=== PATIENT | female | born 1965 | race Caucasian/White ===

== ENCOUNTER 2021-08-28 16:38 | Inpatient (IN) | payer OTHER, SELFPAY ==
[2021-08-28 19:53] VITALS: BMI 49.8
[2021-08-28] MEDS ORDERED: Acetaminophen 325 MG TAB PO PRN (21:09)
[2021-08-28] MEDS ORDERED: Acetaminophen 650 MG Suppository PR PRN (21:09)
[2021-08-28] MEDS ORDERED: Dextrose 5% in Water 1,000 ML IV PRN ×2 (21:19→21:21)
[2021-08-28] MEDS ORDERED: Dextrose 50% Abboject 50 ML SYRINGE SLOW IVP PRN ×2 (21:19→21:21)
[2021-08-28] MEDS ORDERED: HumaLOG 300 UNITS/3 ML VIAL SC PRN ×2 (21:19→21:21)
[2021-08-28] MEDS ORDERED: Potassium Chloride 20 MEQ TAB PO SCH (21:30)
[2021-08-28] MEDS ORDERED: Albuterol Sulfate 2.5 mg/3 ml Neb NEB PRN (22:52)
[2021-08-28] MEDS ORDERED: Albuterol 200 PUFF (6.7GM INHALER) INH PRN (22:55)
[2021-08-28 23:00] LABS: Troponin I Less than 0.010 ng/mL (< 0.028)
[2021-08-28] MEDS ORDERED: Magnesium 2 GM/50 ML 2 GM in Premix Bag 1 BAG IVPB SCH (23:00)
[2021-08-28] MEDS ORDERED: Magnesium Sulfate 2 GM in Sodium Chloride 0.9% 100 ML IVPB SCH (23:00)
[2021-08-29 00:02] LABS: Cardiac Risk 5.4 (Less than 4.5)
[2021-08-29 00:18] LABS: Hemoglobin A1c 6.1 % (4.0-6.0)
[2021-08-29 02:27] LABS: Troponin I Less than 0.010 ng/mL (< 0.028)
[2021-08-29 06:20] LABS: Band 6 % (5-11); Hemoglobin 14.4 g/dL (12.0-16.0); Lymphocytes 44 % (21-51); MDiff Complete? YES; Mean Corpuscular HGB CONC 34.2 g/dL (32.0-36.0); Mean Corpuscular Hemoglobin 29.7 pg (27.0-31.0); Mean Platelet Volume 6.8 fL (7.4-10.4); Monocytes 18 % (0-10); Neutrophil 32 % (42-75); Platelet Count 346 thou/uL (130-400); Platelet Morphology Comment Appears Adequate; RBC Distribution Width 13.5 % (11.5-14.5); Red Blood Cell (RBC) Count 4.85 mill/uL (4.20-5.40); White Blood Cell (WBC) Count 4.4 thou/uL (4.8-10.8)
[2021-08-29 06:27] LABS: ALT (SGPT) 16 U/L (8-55); AST (SGOT) 15 U/L (5-34); Albumin 3.9 g/dL (3.5-5.0); Alkaline Phosphatase 73 U/L (40-110); Anion Gap 12 mmol/L (10-20); BUN (Urea Nitrogen) 9 mg/dL (9.8-20.1); Bilirubin, Total 0.3 mg/dL (0.2-1.2); Calc. Creatinine Clearance 177 mL/min (70-130); Calcium 8.5 mg/dL (7.8-10.44); Carbon Dioxide 27 mmol/L (22-29); Chloride 103 mmol/L (98-107); Globulin 2.6 g/dL (2.4-3.5); Glucose 126 mg/dL (70-105); Potassium 4.1 mmol/L (3.5-5.1); Protein, Total 6.5 g/dL (6.0-8.3); Sodium 138 mmol/L (136-145)
[2021-08-29] MEDS ORDERED: Dexamethasone 4 MG TAB PO SCH (08:00)
[2021-08-29] MEDS: Loratadine 10 MG TAB PO SCH (08:59)
[2021-08-29] MEDS: metFORMIN 500 MG TAB PO SCH ×2 (08:59→18:35)
[2021-08-29] MEDS ORDERED: Metoprolol Tartrate 50 MG TAB PO SCH (09:00)
[2021-08-29] MEDS: Losartan 25 MG TAB PO SCH (09:00)
[2021-08-29] MEDS ORDERED: FLU VACC QS2021-22(6MOS UP)/PF 60 MCG/0.5 ML SYRINGE IM ONE (09:00)
[2021-08-29] MEDS: Hydrochlorothiazide 25 MG TAB PO SCH (09:02)
[2021-08-29] MEDS: Enoxaparin Sodium 40 MG/0.4 ML SYRINGE SC SCH (09:02)
[2021-08-29] MEDS ORDERED: Atorvastatin Calcium 40 MG TAB PO SCH (21:00)
[2021-08-30] MEDS: Losartan 25 MG TAB PO SCH (08:07)
[2021-08-30] MEDS: Hydrochlorothiazide 25 MG TAB PO SCH (08:08)
[2021-08-30] MEDS: Loratadine 10 MG TAB PO SCH (08:08)
[2021-08-30] MEDS: metFORMIN 500 MG TAB PO SCH (08:08)
[2021-08-30] MEDS: Enoxaparin Sodium 40 MG/0.4 ML SYRINGE SC SCH (08:08)
[2021-08-30] MEDS ORDERED: Polyvinyl Alcohol 1.4%/Povidone 0.6% Opth Drops EA EYE SCH (09:00)
[2021-08-30 13:02] VITALS: BP 98/63; TEMP 98.1
== END 2021-08-30 14:45 | disposition home or self-care (01) | DRG 308 ==
LOC: INTOOBSV 16:38 → 2SW 16:38 → OBSVTOIN 08-29 15:33
PROVIDERS: ADMIT Student in an Organized Health Care Education/Training Program; ATTEND Student in an Organized Health Care Education/Training Program
DX: I47.1 Supraventricular tachycardia (principal); U07.1 COVID-19; S05.31XA Ocular laceration without prolapse or loss of intraocular tissue, right eye, initial encounter; I10 Essential (primary) hypertension; K21.9 Gastro-esophageal reflux disease without esophagitis; K44.9 Diaphragmatic hernia without obstruction or gangrene; T48.6X5A Adverse effect of antiasthmatics, initial encounter; W19.XXXA Unspecified fall, initial encounter; Y92.231 Patient bathroom in hospital as the place of occurrence of the external cause; E11.9 Type 2 diabetes mellitus without complications; Z79.899 Other long term (current) drug therapy
CPT/HCPCS: 36415; 36416; 80053; 80061; 83036; 83735; 84484; 85025; 96372; 96374; G0378; J1650; J3475